=== PATIENT | female | born 1995 | race Two or more races ===

== ENCOUNTER 2019-09-09 20:20 | Emergency (ER) | payer MEDICAID ==
[~2019-09-09] VITALS: Ht 157.5 cm; Wt 55.2 kg
[2019-09-09 20:33] VITALS: BP 124/84
[2019-09-09 21:25] LABS: BASOPHILS # (AUTO) 0.02 x10^3/uL (0-0.1); BASOPHILS % (AUTO) 0 % (0-1); EOSINOPHILS # (AUTO) 0.06 x10^3/uL (0-0.4); EOSINOPHILS % (AUTO) 1 % (1-7); LYMPHOCYTES # (AUTO) 2.01 x10^3/uL (1-3.4); LYMPHOCYTES % (AUTO) 34 % (22-44); MD NO; MEAN CORPUSCULAR HEMOGLOBIN 30.3 pg (27.0-34.8); MEAN CORPUSCULAR HGB CONC 33.5 g/dL (32.4-35.8); MEAN CORPUSCULAR VOLUME 90.4 fL (80-100); MEAN PLATELET VOLUME 8.4 fL (7.4-10.4); MONOCYTES # (AUTO) 0.45 x10^3/uL (0.2-0.8); MONOCYTES % (AUTO) 8 % (2-9); NEUTROPHILS # (AUTO) 3.31 x10^3/uL (1.8-6.8); NEUTROPHILS % (AUTO) 57 % (42-75); PLATELET COUNT 346 x10^3/uL (130-400); RED BLOOD COUNT 4.23 x10^6/uL (3.82-5.3); RED CELL DISTRIBUTION WIDTH 12.6 % (9.6-15.2)
[2019-09-09 21:36] LABS: MICROSCOPIC INDICATED
[2019-09-09 21:37] LABS: ANION GAP 5 mmol/L (5-15); CALCIUM 8.7 mg/dL (8.5-10.1); CHLORIDE 106 mmol/L (98-107); CREATININE 0.72 mg/dL (0.55-1.02)
--- NOTE | 2019-09-09 22:39 | NUR ---
PT HERE FOR CRAMPNG AND SPOTTING THAT STARTED TODAY. PT APPROX 4 WEEKS . ALL LABS RESULTED. PA AT BEDSIDE. PT IN NAD
--- NOTE | 2019-09-09 23:10 | NUR ---
Patient given discharge instructions and they have confirmed that they understand the instructions. Patient ambulatory with steady gait.
== END 2019-09-09 23:13 | disposition home or self-care (01) ==
LOC: ED 22:45
DX: O20.0 Threatened abortion (principal); Z3A.01 Less than 8 weeks gestation of pregnancy
CPT/HCPCS: 36415; 76801; 80048; 81001; 84702; 85025; 86901; 87086; 99284

== ENCOUNTER 2019-09-12 17:10 | Emergency (ER) | payer MEDICAID ==
[~2019-09-12] VITALS: Ht 167.6 cm; Wt 56.1 kg
--- NOTE | 2019-09-12 17:57 | NUR ---
LOIN TRIMMER: PT AMBULATORY WITH STEADY GAIT TO ROOM AT THIS TIME. NAHEED
--- NOTE | 2019-09-12 19:50 | NUR ---
D/C INSTRUCTIONS, MEDS & F/U APPT RV'WD WITH PT, SHE VERBALIZES UNDERSTANDING. INSTRUCTED PT TO RETURN TO ED FOR US IF SHE IS UNABLE TO GET AN APPT WITH [facility]. RX GIVEN X1. PT AMBULATED OUT OF ED WITHOUT DIFFICULTY, STATES SHE WILL TAKE AN UBER HOME.
[2019-09-12 19:51] VITALS: BP 119/60
== END 2019-09-12 19:51 | disposition home or self-care (01) ==
LOC: ED 19:45
DX: O03.4 Incomplete spontaneous abortion without complication (principal); O02.1 Missed abortion
CPT/HCPCS: 36415; 84702; 99283